=== PATIENT | female | born 1930 | race Caucasian/White ===

== ENCOUNTER 2019-01-23 21:05 | Inpatient (IN) | payer MEDICARE ==
[2019-01-23 21:29] LABS: #Basophils 0.1 thou/uL (0.0-0.2); #Eosinphils 0.4 thou/uL (0.0-0.7); #Lymphocytes 1.3 thou/uL (1.20-3.40); #Monocytes 0.9 thou/uL (0.11-0.59); #Neutrophils 4.6 thou/uL (1.40-6.50); %Monocytes 11.9 % (0.0-10.0); Hemoglobin 14.7 g/dL (12.0-16.0); Mean Corpuscular HGB CONC 33.7 g/dL (32.0-36.0); Mean Corpuscular Hemoglobin 31.5 pg (27.0-31.0); Mean Corpuscular Volume 93.5 fL (78.0-98.0); Mean Platelet Volume 6.8 fL (7.4-10.4); Platelet Count 266 thou/uL (130-400); Red Blood Cell (RBC) Count 4.67 mill/uL (4.20-5.40); White Blood Cell (WBC) Count 7.2 thou/uL (4.8-10.8)
--- NOTE | 2019-01-23 21:30 | CT ---
FExam: CT brain PROVIDED CLINICAL HISTORY: Right arm numbness COMPARISON: None FINDINGS: The ventricular system is normal in size and morphology. No evidence for intracranial hemorrhage or mass effect. The extracranial soft tissues and osseous structures demonstrate an unremarkable CT appe arance. IMPRESSION: No evidence for intracranial hemorrhage or mass effect. Findings communicated to the ordering clinici an 9:27 PM 01/23/2019. Code CR
[2019-01-23 21:38] LABS: PTT 34.6 SEC (22.9-36.1); Prothrombin Time 13.3 SEC (12.0-14.7)
[2019-01-23 21:44] LABS: ALT (SGPT) 11 U/L (8-55); AST (SGOT) 17 U/L (5-34); Albumin 4.6 g/dL (3.4-4.8); Alkaline Phosphatase 75 U/L (40-150); Anion Gap 11 mmol/L (10-20); BUN (Urea Nitrogen) 18 mg/dL (9.8-20.1); Bilirubin, Total 0.6 mg/dL (0.2-1.2); CK (CPK) 64 U/L (29-168); Calc. Creatinine Clearance 0 mL/min (70-130); Calcium 9.9 mg/dL (7.8-10.44); Carbon Dioxide 28 mmol/L (23-31); Chloride 104 mmol/L (98-107); Estimated GFR-MDRD 53; Globulin 2.7 g/dL (2.4-3.5); Glucose 109 mg/dL (83-110); Potassium 4.1 mmol/L (3.5-5.1); Protein, Total 7.3 g/dL (6.0-8.3); Sodium 139 mmol/L (136-145)
[2019-01-23] MEDS ORDERED: Labetalol HCl 100 MG/20 ML VIAL ONE (22:13)
[2019-01-23] MEDS ORDERED: Ondansetron PF 4 MG/2 ML Vial IVP PRN (23:04)
[2019-01-23] MEDS ORDERED: HYDROcodone/Acetaminophen 5/325 mg Tablet PO PRN (23:04)
[2019-01-23] MEDS ORDERED: Zolpidem Tartrate 5 MG TAB PO PRN (23:04)
--- NOTE | 2019-01-23 23:09 | PDOC.EVN ---
Event Note - Event Note Event Note: H&P [id number]
--- NOTE | 2019-01-24 00:01 | HP ---
CHIEF COMPLAINT: Left upper extremity tingling and numbness. HISTORY OF PRESENT ILLNESS: This is an 88-year-old female, presenting to the hospital with left upper extremity numbness and tingling, which was completely resolved by the time she arrived to the hospital, albeit she was found to have high blood pressure, systolic above 200s. The patient's twin sister apparently brought her in earlier this morning. The patient was having signs and symptoms of left upper extremity numbness and tingling and inability to use it as well as some slurring of her speech. The patient notes that her past medical history is positive for hypertension, paroxysmal atrial fibrillation, as well as hyperlipidemia. The patient notes that she was recently stopped on her anticoagulation and started on aspirin only because as per her operations manager assistant, whose name is Dr. Maria. She was apparently cared for her atrial fibrillation. The patient has been taking cholesterol medications and aspirin since then, noted to have the symptoms occurring for the first time in her life. Denies any alleviating or aggravating factors. No other associated symptoms or complaints. ALLERGIES: NO KNOWN DRUG ALLERGIES. PAST MEDICAL HISTORY: Hypertension, hyperlipidemia, and peripheral vascular disease. FAMILY HISTORY: Positive for hypertension. SOCIAL HISTORY: Nondrinker and nonsmoker. HOME MEDICATIONS: See MAR. REVIEW OF SYSTEMS: All systems reviewed. Pertinent positive in HPI, otherwise negative. PHYSICAL EXAMINATION: VITAL SIGNS: Blood pressure of 162/88, temperature of 98, O2 saturations 100% on room air, heart rate of 59, and respiratory rate of 18. GENERAL: The patient is lying in bed, in no acute discomfort. HEENT: Pupils are equal, round, and reactive to light and accommodation. Extraocular muscles are intact. Oral cavity is moist and pink. Normocephalic and atraumatic. NECK: Supple, mobile, and nontender. Thyroid is appreciated. PULMONARY: Clear to auscultation bilaterally. No increase in AP diameter. No respiratory distress. CARDIOVASCULAR: S1 and S2. No murmurs, rubs, or gallops appreciated. ABDOMEN: Positive bowel sounds. Soft, nontender, and nondistended. EXTREMITIES: Trace pitting edema in the bilateral lower extremities. 2+ peripheral pulses. No cyanosis or clubbing noted. NEUROLOGIC: cranial nerves 2 through 12 are intact. No loss of motor or sensory function. LABORATORY DATA: CBC reviewed. BMP reviewed. PT and INR reviewed. DIAGNOSTIC DATA: CT of her head reviewed. ASSESSMENT: 1. Transient ischemic attack, rule out cerebrovascular accident. 2. Hypertension. 3. Hyperlipidemia. 4. Peripheral vascular disease. PLAN: At this point in time, we will admit the patient to Internal Medicine Team. We will obtain PT and OT evaluation. We will obtain echo, carotid ultrasounds, as well as MRI. Obtain lab in the morning. Lipid panel in the morning. We will start the patient on aspirin and statin. Baseline rhythm at this point in time is normal sinus and the patient states that she was told by her operations manager assistant, Dr. Maria, not to take any anticoagulation, so we will not start any anticoagulation for her paroxysmal atrial fibrillation for now. We will do image workup as mentioned above, wishes to remain a full code. If negative, the patient will need to follow up with her PCP for further management and care. Case and plan discussed with the patient and her sister at length. They understand and agree with this plan. Job ID: [id number]
[2019-01-24 03:49] LABS: #Eosinphils 0.2 thou/uL (0.0-0.7); #Monocytes 0.6 thou/uL (0.11-0.59); #Neutrophils 6.5 thou/uL (1.40-6.50); %Basophils 0.2 % (0.0-1.0); %Eosinophils 1.9 % (0.0-10.0); %Monocytes 6.7 % (0.0-10.0); %Neutrophils 79.2 % (42.0-75.0); Hemoglobin 13.1 g/dL (12.0-16.0); Mean Corpuscular HGB CONC 33.4 g/dL (32.0-36.0); Mean Corpuscular Hemoglobin 30.8 pg (27.0-31.0); Mean Corpuscular Volume 92.1 fL (78.0-98.0); Mean Platelet Volume 6.7 fL (7.4-10.4); Platelet Count 227 thou/uL (130-400); RBC Distribution Width 11.9 % (11.5-14.5); Red Blood Cell (RBC) Count 4.27 mill/uL (4.20-5.40); White Blood Cell (WBC) Count 8.2 thou/uL (4.8-10.8)
[2019-01-24 04:00] LABS: Anion Gap 10 mmol/L (10-20); BUN (Urea Nitrogen) 18 mg/dL (9.8-20.1); Calc. Creatinine Clearance 0 mL/min (70-130); Calcium 9.2 mg/dL (7.8-10.44); Carbon Dioxide 26 mmol/L (23-31); Chloride 106 mmol/L (98-107); Cholesterol 157 mg/dl (< 200 Desired); Estimated GFR-MDRD 66; Glucose 113 mg/dL (83-110); HDL Cholesterol 53 mg/dL (>60 Neg Risk); LDL Cholesterol, Calculated 90 mg/dL; Potassium 4.3 mmol/L (3.5-5.1); Sodium 138 mmol/L (136-145); Triglycerides 69 mg/dL (Less than 150)
[2019-01-24] MEDS ORDERED: Acetaminophen 325 MG TAB ONE (05:38)
[2019-01-24] MEDS ORDERED: Acetaminophen 325 MG/10.15 ML UDCUP ONE (05:38)
[2019-01-24] MEDS: Acetaminophen 325 MG TAB PO PRN (05:40)
[2019-01-24] MEDS ORDERED: Famotidine 20 MG TAB ONE (08:24)
[2019-01-24] MEDS ORDERED: Enoxaparin Sodium 40 MG/0.4 ML SYRINGE ONE (08:24)
[2019-01-24] MEDS: Famotidine 20 MG TAB PO SCH ×2 (08:31→20:00)
[2019-01-24] MEDS: Enoxaparin Sodium 40 MG/0.4 ML SYRINGE SC SCH (08:31)
[2019-01-24] MEDS: Aspirin 81 mg Enteric Coated Tablet PO SCH (08:31)
--- NOTE | 2019-01-24 09:40 | ULT ---
ULTRASOUND DOPPLER DUPLEX CAROTID: DATE: 01-24-19 HISTORY: 88-year-old female with CVA or TIA. TECHNIQUE: Grayscale, color flow, and spectral analysis of major arteries of neck. FINDINGS: Mild plaque at origins of right internal carotid, right external carotid, and left external carotid. Highest peak systolic velocities in the internal carotid arteries are 82 cm/s on the right and 65 cm/ s on the left. ICA/CCA ratios are 1.2 on the right and 0.9 on the left. Vertebral artery flow is antegrade bilateral ly. IMPRESSION: 1. Mild atherosclerosis. 2. No hemodynamically significant stenosis. POS: [facility]
--- NOTE | 2019-01-24 10:04 | MRI ---
MRI BRAIN NONCONTRAST: DATE: 01/24/19 HISTORY: 88-year-old female with TIA, right arm numbness. COMPARISON: None. FINDINGS: There is an approximately 2.5 x 1.5 cm patch of restricted diffusion in the left upper occipital magda ex and subcortical white matter representing an acute or subacute infarction. There is mild T2 hyperi ntensity associated along the cortical periphery of this on the FLAIR sequence. Much more superiorly in the left centrum semiovale, there is a small, slightly greater than 1 cm, pat ch of slightly restricted diffusion. There are mild to moderate chronic ischemic white matter changes in the cerebrum bilaterally. No obst ructive hydrocephalus, acute or remote intra-axial hemorrhage, mass effect, midline shift, or extra-a xial fluid collection. Flow-voids are grossly maintained in the major arteries of the [place]. IMPRESSION: 1. Small acute or subacute infarction of the left occipital lobe. 2. A mild, subtle patchy of slightly restricted diffusion in the left upper deep cerebral white alonso er and adjacent subcortical white matter. Etiology is uncertain. This could represent a late subacute small white matter infarction. In order to rule out a small neoplasm, a contrast enhanced MRI is rec ommended (unless there are contraindications). JASON Denise POS: [facility]
[2019-01-24 16:15] VITALS: BMI 30.2
[2019-01-24] MEDS ORDERED: Clopidogrel Bisulfate 75 MG TAB PO SCH (16:30)
[2019-01-24] MEDS: Atorvastatin Calcium 40 MG TAB PO SCH (20:01)
--- NOTE | 2019-01-24 22:00 | PDOC.PN ---
- Subjective Encounter Start Date: 01/24/19 Encounter Start Time: 10:45 Subjective: pt up in bed no complains but has been having unsteady gait for few weeks - Objective Vital Signs & Weight: Vital Signs (12 hours) Temp Pulse Pulse Pulse Resp BP BP 01/24/19 19:53 98.6 F 64 18 01/24/19 15:27 58 L 87 175/78 H 165/91 H 01/24/19 15:04 98.4 F 58 L 18 01/24/19 14:45 01/24/19 14:30 98.4 F 58 L 18 BP Pulse Ox 01/24/19 19:53 150/80 H 93 L 01/24/19 15:27 01/24/19 15:04 93 L 01/24/19 14:45 93 L 01/24/19 14:30 167/85 H 93 L Weight Weight 175 lb 14.4 oz Result Diagrams: 01/24/19 03:29 01/24/19 03:29 Phys Exam - Physical Examination Neck: no nodes, no JVD, supple, full ROM Respiratory: no wheezing, no rales, no rhonchi, wheezing present, clear to auscultation bilateral Cardiovascular: RRR, no significant murmur, no rub, gallop, irregular Gastrointestinal: soft, non-tender, no distention, positive bowel sounds Musculoskeletal: no edema, pulses present, edema present Dx/Plan (1) Stroke Code(s): I63.9 - CEREBRAL INFARCTION, UNSPECIFIED Status: Acute (2) Paroxysmal A-fib Code(s): I48.0 - PAROXYSMAL ATRIAL FIBRILLATION Status: Acute - Plan MRi indicated left occipital stroke, pt was on xarelto and was taken off -: about 2wk ago by her teacher education instructor. neuro consulted recommended plavix -: however i feel this pt should be back on xarelto in the anticipation of -: stroke in the future. Due to the not known reason her teacher education instructor stopped -: her xarelto, neurology feels they will start plavix/statin and she can * . follow up with her teacher education instructor for restarting her xarelto. PT very active and appears younger than her stated age. Review of Systems - Review of Systems Respiratory: negative: Cough, Dry, Shortness of Breath, Hemoptysis, SOB with Excertion, Pleuritic Pain, Sputum, Wheezing Gastrointestinal: negative: Nausea, Vomiting, Abdominal Pain, Diarrhea, Constipation, Melena, Hematochezia (mild unsteady), Other Musculoskeletal: negative: Neck Pain, Shoulder Pain, Arm Pain, Back Pain, Hand Pain, Leg Pain, Foot Pain, Other - Medications/Allergies Allergies/Adverse Reactions: Allergies Allergy/AdvReac Type Severity Reaction Status Date / Time No Known Drug Allergies Allergy Verified 01/24/19 16:38 Medications: Current Medications Acetaminophen (Tylenol) 650 mg PO Q4H PRN PRN Reason: Headache/Fever/Mild Pain (1-3) Last Admin: 01/24/19 05:40 Dose: 650 mg Hydrocodone Bitart/Acetaminophen ([place] 5/325) 1 tab PO Q4H PRN PRN Reason: Moderate Pain (4-6) Aspirin (Ecotrin) 81 mg PO DAILY [facility] Last Admin: 01/24/19 08:31 Dose: 81 mg Atorvastatin Calcium (Lipitor) 40 mg PO HS [facility] Last Admin: 01/24/19 20:01 Dose: 40 mg Clopidogrel Bisulfate (Plavix) 75 mg PO DAILY [facility] Enoxaparin Sodium (Lovenox) 40 mg SC 0900 [facility] Last Admin: 01/24/19 08:31 Dose: 40 mg Famotidine (Pepcid) 20 mg PO BID [facility] Last Admin: 01/24/19 20:00 Dose: 20 mg Ondansetron HCl (Zofran) 4 mg IVP Q6H PRN PRN Reason: Nausea/Vomiting Sodium Chloride (Flush - Normal Saline) 10 ml IVF PRN PRN PRN Reason: Saline Flush Zolpidem Tartrate (Ambien) 5 mg PO HSPRN PRN PRN Reason: Insomnia
[2019-01-25] MEDS ORDERED: Haloperidol Lactate 5 MG/ML VIAL IM SCH (03:30)
[2019-01-25] MEDS: Enoxaparin Sodium 40 MG/0.4 ML SYRINGE SC SCH (09:24)
[2019-01-25] MEDS: Clopidogrel Bisulfate 75 MG TAB PO SCH (09:25)
[2019-01-25] MEDS: Aspirin 81 mg Enteric Coated Tablet PO SCH (09:25)
[2019-01-25] MEDS: Famotidine 20 MG TAB PO SCH ×2 (09:25→20:28)
--- NOTE | 2019-01-25 11:53 | PDOC.PN ---
- Subjective Encounter Start Date: 01/25/19 Encounter Start Time: 11:52 Patient seen and examined, apparently her sister and her both locked the doors and called 911 last night. Now the patient's sister is also admitted to the hospital in a different room and the patient believes she's in her own house. She otherwise is pleasent and has not had any major issues overnight. Seen and examined, sitter at bedside, all questions answered. - Objective Vital Signs & Weight: Vital Signs (12 hours) Temp Pulse Resp BP Pulse Ox 01/25/19 11:21 97.8 F 68 16 155/82 H 95 01/25/19 10:50 155/82 H 01/25/19 10:30 93 L 01/25/19 08:00 93 L 01/25/19 07:50 97.7 F 67 18 167/80 H 90 L 01/25/19 04:00 98.9 F 80 19 182/90 H 93 L Weight Weight 175 lb 14.4 oz I&O: 01/24/19 01/25/19 01/26/19 06:59 06:59 06:59 Intake Total 240 Balance 240 Result Diagrams: 01/24/19 03:29 01/24/19 03:29 Phys Exam - Physical Examination Constitutional: NAD HEENT: PERRLA, moist MMs, sclera anicteric Neck: no nodes, no JVD, supple Respiratory: no wheezing, no rales, no rhonchi Cardiovascular: no significant murmur, irregular Gastrointestinal: soft, non-tender, no distention Musculoskeletal: pulses present, edema present (trace) Neurological: normal sensation RUE weakness Dx/Plan (1) Altered mental status Code(s): R41.82 - ALTERED MENTAL STATUS, UNSPECIFIED Status: Acute (2) Paroxysmal A-fib Code(s): I48.0 - PAROXYSMAL ATRIAL FIBRILLATION Status: Acute (3) Stroke Code(s): I63.9 - CEREBRAL INFARCTION, UNSPECIFIED Status: Acute - Plan * Will restart xarelto at 15mg po daily, patient stated she was taking 20mg and this was stopped as she kept having bleeding gums. She has a new stroke on imaging and with the hx of Afib with a [id number] above 2, will restart anticoagulation and do antiplatelet as well, can DC antiplatelet in 3-4 months. Will do statin as well * patient's mental status appears to have randomly and rapidly changed, unexplained by stroke. She is AAO to person and time only but not place. No psych evaluation available so will get MHMR for now * patient otherwise is stable to be discharged except for this AMS issue. Will also obtain UA to evaluate for possible UTI, this may be hospital delirium but its too early for this as she's only been here 1-2 days. * will await MHMR input * family apparently is comign today as well, nurse requested to call me once family arrives * no other changes in plan of care
[2019-01-25] MEDS: Acetaminophen 325 MG TAB PO PRN (14:26)
[2019-01-25 17:17] LABS: Bilirubin Negative (Negative); Blood, Urine Negative (Negative); Clarity CLEAR (Clear); Glucose, Urine (Dipstick) Negative (Negative); Leukocyte Trace (Negative); Nitrite Negative (Negative); Protein, Urine (Dipstick) Negative (Neg-Trace); Specific Gravity, Urine 1.005 (1.002-1.036); Urobilinogen 0.2 mg/dL (0.2-1.0)
[2019-01-25 17:19] LABS: Bacteria/HPF None Seen HPF (None Seen); Hyaline Casts/LPF 0-3 HYALINE CAST LPF (0-3 Hyaline); Pathc Cast-AUWi Flag 0.27 (0-2.49); RBC/HPF 0-3 HPF (0-3); Squamous Epithelial None Seen HPF (0-3); WBC/HPF 0-3 HPF (0-3)
[2019-01-25 17:21] LABS: Urine Culture Reflex Yes Yes
[2019-01-25] MEDS: Atorvastatin Calcium 40 MG TAB PO SCH (20:28)
--- NOTE | 2019-01-25 22:42 | CON ---
DATE OF CONSULTATION: 01/25/2019 CONSULTING PHYSICIAN: Hospitalist Service. IMPRESSION: 1. 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 2. History of intermittent atrial fibrillation. 3. Hypertension. 4. Aspirin failure. PLAN: 1. Cardiology has recommended Xarelto. 2. Office followup with her new senior lead software engineer in [place]. HISTORY OF PRESENT ILLNESS: Ms. Mckeon is an 88-year-old woman who presented with complaints of right arm numbness. She noted a bit of blurred vision on the right, but did not really make much out of it. She came in for evaluation. She had an MRI of the brain, which shows an acute left occipital stroke relatively small in size. A carotid ultrasound was unremarkable. Echocardiogram showed a 60% to 65%. ejection fraction. She has primarily been in a normal sinus rhythm since admission. Her lipid ratio was 3.0. PAST MEDICAL HISTORY: Intermittent atrial fibrillation, hypertension. SOCIAL HISTORY: No tobacco or alcohol use. ALLERGIES: NONE REPORTED. MEDICATIONS: Medication list was reviewed. FAMILY HISTORY: Noncontributory. REVIEW OF SYSTEMS: A 10-system of review of systems is otherwise unremarkable. PHYSICAL EXAMINATION: GENERAL: She is a well-nourished elderly lady, who appears good for her age. HEENT: Pupils are equal and reactive. Conjunctivae are clear. Oropharynx is clear. NECK: Supple, no lymphadenopathy. EXTREMITIES: No cyanosis, clubbing, or edema. NEUROLOGIC: She is alert and cooperative. She is oriented to person, place, and time. She follows commands appropriately. Cranial nerve exam shows a 50% reduction of the right visual field. The remainder of the cranial nerves are intact. Motor exam shows good fender repairer strength bilaterally without fix or drift. Cerebellar shows normal [id number] and rapid alternating movements. Sensation is intact to touch bilaterally. Plantar responses are mute. She is able to stand and walk independently. SUMMARY: This is an elderly lady with history of intermittent atrial fibrillation, who presented with an occipital stroke. She is doing well at this point, her workup is complete. She had a transient episode of confusion last evening. I think that she would be better off in her own home environment. Her family is ready to take care of her in [place]. She seems stable for discharge. Job ID: [id number]
[2019-01-26] MEDS ORDERED: Verapamil 5 MG/2 ML VIAL IVP SCH (02:15)
[2019-01-26] MEDS ORDERED: Diltiazem HCl 125 MG, Admixture Fee 1 EACH in Sodium Chloride 0.9% 100 ML IVPB SCH (03:30)
[2019-01-26] MEDS ORDERED: Metoprolol Tartrate 25 MG TAB PO SCH ×2 (09:00→14:00)
[2019-01-26] MEDS ORDERED: Metoprolol Tartrate 5 MG/5 ML VIAL IVP SCH (09:15)
[2019-01-26] MEDS: Clopidogrel Bisulfate 75 MG TAB PO SCH (09:26)
[2019-01-26] MEDS: Famotidine 20 MG TAB PO SCH (09:26)
[2019-01-26] MEDS: Aspirin 81 mg Enteric Coated Tablet PO SCH (09:26)
[2019-01-26] MEDS: Enoxaparin Sodium 40 MG/0.4 ML SYRINGE SC SCH (09:27)
--- NOTE | 2019-01-26 13:27 | PDOC.EVN ---
Event Note - Event Note Event Note: DC SUMMARY #[id number]
[2019-01-26 15:29] VITALS: BP 128/87; TEMP 97.4
--- NOTE | 2019-01-27 02:59 | DIS ---
DATE OF ADMISSION: 01/24/2019 DATE OF DISCHARGE: 01/26/2019 ADMITTING DIAGNOSES: Right upper extremity pain, chronic history of paroxysmal chronic atrial fibrillation, hypertension, hyperlipidemia, diabetes, transient ischemic attack. DISCHARGE DIAGNOSES: Acute cerebrovascular accident, left occipital lobe. Hypertension, hyperlipidemia, chronic atrial fibrillation. HOSPITAL COURSE: This is an 88-year-old female who initially admitted to the hospital complaining of upper extremity numbness and tingling, was admitted to Internal Medicine Team, had a brain MRI done which showed a left occipital lobe infarction. The patient also was noted to have atrial fibrillation. Of note, the patient had her Xarelto stopped recently by her service plumber and was switched to aspirin. The patient was admitted to Internal Medicine Team, seen by Neurology as well. Recommendations were made by Neuro team. At point in time of discharge, the patient was stable. Denied any nausea, vomiting, diarrhea, constipation, chest pain, fevers, or shortness of breath. The patient stated that her Xarelto was stopped because she was having bleeding gums every time she brushed her teeth. The patient's Xarelto dosage was 20 mg daily. At this point in time of discharge, the patient had developed a stroke with atrial fibrillation and so, decision was made after lengthy discussion with the family to restart her Xarelto as well as her statin. We will start Xarelto at 15 daily instead of 20, and recommend that the patient follow up with a service plumber for further management and care. Case and plan discussed with family at length and they understood and agreed with this plan. DISPOSITION: Home. FOLLOWUP: Follow up with PCP and Cardiology within 1 week. MEDICATIONS: See MAR. ACTIVITY: As tolerated with assistance as needed. DIET: Low-fat, low-calorie, high-fiber diet. CONDITION: Stable. PROGNOSIS: Guarded. Case and plan again discussed with the patient and family at length. They understood and agreed with this plan. Job ID: [id number]
== END 2019-01-26 16:44 | disposition home or self-care (01) | DRG 66 ==
LOC: ERS 21:05 → ERHOLD 22:07 → 2SE 01-24 14:28 → OBSVTOIN 01-24 16:40
PROVIDERS: ADMIT Internal Medicine; ATTEND Internal Medicine
DX: I63.9 Cerebral infarction, unspecified (principal); I10 Essential (primary) hypertension; E78.5 Hyperlipidemia, unspecified; I73.9 Peripheral vascular disease, unspecified; I48.0 Paroxysmal atrial fibrillation; E11.9 Type 2 diabetes mellitus without complications
CPT/HCPCS: 36415; 36416; 70450; 70551; 80048; 80053; 80061; 81001; 82550; 84484; 85025; 85610; 85730; 87086; 93005; 93306; 93880; J1630; J1650; J7050